=== PATIENT | female | born 1950 | race Caucasian/White ===

== ENCOUNTER 2023-01-24 05:14 | Day surgery (SDC) | payer OTHER, BC ==
[2023-01-20 18:48] VITALS: BMI 25.7
[2023-01-24] MEDS ORDERED: LIDOCAINE HCL/PF 1% SDV 5ML VIAL ONE (07:21)
[2023-01-24] MEDS ORDERED: DEXAMETHASONE SOD PHOSPHATE 10 MG/1 ML VIAL ONE (07:21)
[2023-01-24] MEDS ORDERED: LIDOCAINE HCL 1%, 10 MG/ML (50 mL VIAL) NR ONE (12:00)
[2023-01-24] MEDS ORDERED: DEXAMETHASONE SOD PHOSPHATE 10 MG/1 ML VIAL IM ONE (12:00)
[2023-01-24] MEDS ORDERED: IOHEXOL 180 MG/1 ML ML IJ ONE (12:00)
[2023-01-24 12:59] VITALS: BP 129/62; PULSE 65; RESP 16; TEMP 98.1
[2023-01-24] MEDS ORDERED: ACETAMINOPHEN 500 MG TABLET (FP) PO PRN (13:31)
== END 2023-01-24 12:55 | disposition home or self-care (01) ==
LOC: JASU-SURG 05:14
PROVIDERS: ATTEND Pain Medicine Pain Medicine
PROC: 3E0R3BZ Introduction of Anesthetic Agent into Spinal Canal, Percutaneous Approach (ICD-10-PCS; 2023-01-24)
PROC: 3E0R33Z Introduction of Anti-inflammatory into Spinal Canal, Percutaneous Approach (ICD-10-PCS; principal; 2023-01-24 11:15)
DX: M54.16 Radiculopathy, lumbar region (principal)
CPT/HCPCS: 76000-TC-FY; J1100

== ENCOUNTER 2023-06-20 20:29 | Emergency (ER) | payer OTHER, BC ==
[2023-06-20 20:32] VITALS: RESP 18; BMI 25.9
[2023-06-20 22:07] LABS: BASO % 0.5 % (0-2.0); HEMATOCRIT 39.5 % (32.4-45.2); HEMOGLOBIN 13.3 GM/dL (10.7-15.3); MCH 30.6 pg (25.7-33.7); MCHC 33.6 g/dl (32.0-36.0); MEAN CELL VOLUME 90.9 fl (80-96); MEAN PLT VOLUME 8.6 fl (7.5-11.1); MONO % 5.2 % (3.8-10.2); NEUT % 81.3 % (42.8-82.8); PLATELET COUNT 298 10^3/uL (134-434); RBC 4.35 M/mm3 (3.60-5.2); RDW 14.3 % (11.6-15.6); WHITE BLOOD COUNT 12.3 K/mm3 (4.0-10.0)
[2023-06-20 22:16] LABS: POTASSIUM 4.3 mmol/L (3.5-5.1)
[2023-06-20 22:17] LABS: CALCIUM 10.2 mg/dL (8.5-10.1)
[2023-06-20 22:18] LABS: ALBUMIN 3.9 g/dl (3.4-5.0); BLOOD UREA NITROGEN 16.7 mg/dL (7-18)
[2023-06-20 22:21] LABS: CREATININE 0.7 mg/dL (0.55-1.3)
[2023-06-20 22:23] LABS: BILIRUBIN,TOTAL 0.7 mg/dL (0.2-1); TOT PROT 7.4 g/dl (6.4-8.2)
[2023-06-20 22:58] LABS: ERYTHROCYTE SEDIMENTATION RATE 21 mm/hr (0-30)
[2023-06-21] MEDS: methylPREDNISolone NA SUCC 1000 MG/8 ML VIAL IVPB ONE (00:41)
[2023-06-21 02:12] VITALS: BP 128/78; PULSE 61; TEMP 98
== END 2023-06-21 02:19 | disposition left against medical advice (07) ==
LOC: JER 20:29
PROC: 3E033GC Introduction of Other Therapeutic Substance into Peripheral Vein, Percutaneous Approach (ICD-10-PCS; principal; 2023-06-21)
DX: R51.9 Headache, unspecified (principal); K08.89 Other specified disorders of teeth and supporting structures; R79.82 Elevated C-reactive protein (CRP); R09.81 Nasal congestion
CPT/HCPCS: 36415; 70450-TC; 80053; 85025; 85651; 86140; 96374; 99284-25